=== PATIENT | female | born 2000 | race Caucasian/White ===

== ENCOUNTER 2023-11-03 13:57 | Outpatient (CLI) | payer OTHER, SELFPAY ==
--- NOTE | ~2023-11-03 | US_ITS ---
RIGHT LOWER EXTREMITY VENOUS ULTRASOUND Ordering provider: Jayde Melendrez, History: . PAIN AND SWELLING OF R LOWER LEG . Comparison: None. FINDINGS: --COMMON FEMORAL: Patent and free of thrombus. Normal compressibility, phasic flow and augmentation. --PROXIMAL SUPERFICIAL FEMORAL: Patent and free of thrombus. Normal compressibility, phasic flow and augmentation. --DISTAL SUPERFICIAL FEMORAL: Patent and free of thrombus. Normal compressibility, phasic flow and au gmentation. --POPLITEAL: Patent and free of thrombus. Normal compressibility, phasic flow and augmentation. --POSTERIOR TIBIAL: Patent and free of thrombus. Normal compressibility, phasic flow and augmentation . IMPRESSION: Negative right lower extremity venous US. No deep vein thrombosis. Reviewed, dictated and finalized at location A.
== END 2023-11-03 13:58 | disposition home or self-care (01) ==
LOC: ANHIMG 14:03
PROVIDERS: PCP Nurse Practitioner Family; Visit Provider Family Medicine Sports Medicine
DX: M79.661 Pain in right lower leg (principal); M79.89 Other specified soft tissue disorders; L40.8 Other psoriasis
CPT/HCPCS: 93971